=== PATIENT | female | born 1970 | race Caucasian/White ===

== ENCOUNTER 2021-07-08 13:52 | Emergency (ER) | payer SELFPAY ==
[~2021-07-08] VITALS: Ht 157.5 cm; Wt 83.9 kg
== END 2021-07-08 17:43 | disposition home or self-care (01) ==
LOC: ER 13:52
DX: R53.83 Other fatigue (principal); Z88.0 Allergy status to penicillin; Z20.822 Contact with and (suspected) exposure to COVID-19
CPT/HCPCS: 71046; 99284-25

== ENCOUNTER → 2021-08-18 | Outpatient (CLI) | payer SELFPAY ==
[2021-08-18 09:56] LABS: BASOPHILS ABSOLUTE AUTO 0.11 K/mm3 (0.00-0.23); BASOPHILS PERCENT AUTO 1 % (0-2); EOSINOPHILS ABSOLUTE AUTO 0.29 K/mm3 (0.00-0.68); EOSINOPHILS PERCENT AUTO 4 % (0-6); Hematocrit 44.7 % (33.0-51.0); Hemoglobin 14.7 g/dL (11.5-16.0); IMMATURE GRAN ABSOLUTE AUTO 0.04 K/mm3 (0.00-0.10); IMMATURE GRAN PERCENT AUTO 1 % (0-1); LYMPHOCYTES PERCENT AUTO 33 % (21-46); MONOCYTES ABSOLUTE AUTO 0.53 K/mm3 (0.16-1.47); MONOCYTES PERCENT AUTO 7 % (4-13); Mean Corpuscular HGB 28.7 pg (26.0-34.0); Mean Corpuscular HGB Conc 32.9 g/dL (31.5-36.5); Mean Corpuscular Volume 87 fL (80-100); Mean Platelet Volume 9.4 fL (9.1-12.4); NEUTROPHILS ABSOLUTE AUTO 4.48 K/mm3 (1.96-9.15); NEUTROPHILS PERCENT AUTO 55 % (41-73); Platelet Count 225 K/mm3 (150-400); RDW Standard Deviation 48.1 fL (35.1-46.3); Red Blood Cell Count 5.13 M/mm3 (3.80-5.20); White Blood Cell Count 8.15 K/mm3 (4.00-11.30)
== END | disposition home or self-care (01) ==
LOC: LAB SHORT 09:50 → LAB 09:50
PROVIDERS: Physician Assistant
DX: R23.8 Other skin changes (principal)
CPT/HCPCS: 85025; 85379; 85651

== ENCOUNTER 2021-09-21 18:45 | Emergency (ER) | payer SELFPAY ==
[~2021-09-21] VITALS: Ht 157.5 cm; Wt 81.7 kg
== END 2021-09-21 23:17 | disposition home or self-care (01) ==
LOC: ER 18:45
DX: U07.1 COVID-19 (principal); M79.675 Pain in left toe(s); M79.674 Pain in right toe(s); Z88.0 Allergy status to penicillin; F17.200 Nicotine dependence, unspecified, uncomplicated
CPT/HCPCS: 93922; 99283-25

== ENCOUNTER 2023-02-12 19:55 | Emergency (ER) | payer BC ==
[~2023-02-12] VITALS: Ht 157.5 cm; Wt 86.2 kg
[2023-02-12] MEDS ORDERED: CLIN300 PO (23:46)
== END 2023-02-13 00:10 | disposition home or self-care (01) ==
LOC: ER 19:55
DX: K11.20 Sialoadenitis, unspecified (principal); F17.200 Nicotine dependence, unspecified, uncomplicated; Z88.0 Allergy status to penicillin
CPT/HCPCS: A9270; J1885

== ENCOUNTER 2023-11-30 09:02 | Day surgery (SDC) | payer BC ==
[~2023-11-30 09:02] MED LIST: ADALAT CC30 M1 PO; CLIN300 PO; DOCUZEN 8.6-501 EACH PO; ESTROVEN PO; HYDACE25S PR; HYDROCORTISON28.4 G5 TOP; Hair, Skin & N1 EACH PO; Lipitor20 MG PO; OMEP20ER PO
[2023-11-30 11:38] VITALS: BP 158/95
== END 2023-11-30 11:33 | disposition home or self-care (01) ==
LOC: ORSCSDS 09:02
PROVIDERS: Internal Medicine Gastroenterology
PROC: 0DBN8ZX Excision of Sigmoid Colon, Via Natural or Artificial Opening Endoscopic, Diagnostic (ICD-10-PCS; principal; 2023-11-30 10:30)
PROC: 0DBL8ZX Excision of Transverse Colon, Via Natural or Artificial Opening Endoscopic, Diagnostic (ICD-10-PCS; principal; 2023-11-30 10:30)
DX: K62.5 Hemorrhage of anus and rectum (principal); K59.00 Constipation, unspecified; D12.3 Benign neoplasm of transverse colon; K63.5 Polyp of colon; K63.89 Other specified diseases of intestine; K57.30 Diverticulosis of large intestine without perforation or abscess without bleeding; Z80.0 Family history of malignant neoplasm of digestive organs; E78.5 Hyperlipidemia, unspecified; Z83.719 Family history of colon polyps, unspecified; K64.4 Residual hemorrhoidal skin tags; K64.8 Other hemorrhoids; Z79.899 Other long term (current) drug therapy
CPT/HCPCS: 88305; J2704; J7120

== ENCOUNTER 2023-12-28 09:47 | Day surgery (SDC) | payer BC ==
[~2023-12-28] VITALS: Ht 157.5 cm; Wt 87.0 kg
[~2023-12-28 09:47] MED LIST changes: +HYDROCORTISONE-28 GM TOP; +Lactated Ringer's 1,000 ML IV ONE; +propofoL 50 ML IV ONE
[2023-12-28] MEDS ORDERED: ASPI81CH PO (10:30)
[2023-12-28] MEDS ORDERED: CATAPRES-TTS 11 EAC1 TOP (10:30)
[2023-12-28] MEDS ORDERED: Lactated Ringer's 1,000 ML IV ONE (10:38)
[2023-12-28 12:42] VITALS: BP 119/64
== END 2023-12-28 12:46 | disposition home or self-care (01) ==
LOC: ORSCSDS 09:47
PROVIDERS: Internal Medicine Gastroenterology
PROC: 0DB68ZX Excision of Stomach, Via Natural or Artificial Opening Endoscopic, Diagnostic (ICD-10-PCS; principal; 2023-12-28 11:15)
PROC: 0DB58ZX Excision of Esophagus, Via Natural or Artificial Opening Endoscopic, Diagnostic (ICD-10-PCS; principal; 2023-12-28 11:15)
DX: K21.9 Gastro-esophageal reflux disease without esophagitis (principal); K29.50 Unspecified chronic gastritis without bleeding; B96.81 Helicobacter pylori [H. pylori] as the cause of diseases classified elsewhere; D13.0 Benign neoplasm of esophagus; Z80.0 Family history of malignant neoplasm of digestive organs; E78.5 Hyperlipidemia, unspecified; Z79.82 Long term (current) use of aspirin; Z79.899 Other long term (current) drug therapy
CPT/HCPCS: 88305; 88342; J2704; J7120

== ENCOUNTER 2024-01-06 11:07 | Emergency (ER) | payer BC ==
[~2024-01-06] VITALS: Ht 157.5 cm; Wt 86.2 kg
[~2024-01-06 11:07] MED LIST changes: +ASPI81CH PO; +CATAPRES-TTS 11 EAC1 TOP; -Lactated Ringer's 1,000 ML IV ONE; -propofoL 50 ML IV ONE
[2024-01-06 11:27] VITALS: BP 131/78
[2024-01-06] MEDS ORDERED: CLAR500 PO (11:36)
[2024-01-06] MEDS ORDERED: Amoxicillin500 MG PO (11:36)
[2024-01-06] MEDS ORDERED: DiphenhydrAMINE HCl 50 MG Cap PO ONE (12:00)
[2024-01-06] MEDS ORDERED: Famotidine 20 MG Tab PO ONE (12:00)
[2024-01-06] MEDS ORDERED: Triamcinolone Inj Susp 40 MG / ML 1ML Vial IM ONE (12:00)
[2024-01-06] MEDS ORDERED: Tetracycline H500 MG PO (12:43)
[2024-01-06] MEDS ORDERED: Flagyl250 MG PO (12:43)
== END 2024-01-06 12:55 | disposition home or self-care (01) ==
LOC: ER 11:07
DX: T78.40XA Allergy, unspecified, initial encounter (principal); B96.81 Helicobacter pylori [H. pylori] as the cause of diseases classified elsewhere; Z88.0 Allergy status to penicillin; Z79.899 Other long term (current) drug therapy; Z79.82 Long term (current) use of aspirin; F17.200 Nicotine dependence, unspecified, uncomplicated
CPT/HCPCS: 96372; 99283-25; A9270; J3301

== ENCOUNTER → 2024-02-21 | Outpatient (CLI) | payer BC ==
[~2024-02-21] MED LIST changes: +Amoxicillin500 MG PO; +CLAR500 PO; +Flagyl250 MG PO; +Tetracycline H500 MG PO
[2024-02-21 20:00] LABS: BASOPHILS ABSOLUTE AUTO 0.14 K/mm3 (0.00-0.23); BASOPHILS PERCENT AUTO 1 % (0-2); EOSINOPHILS ABSOLUTE AUTO 0.45 K/mm3 (0.00-0.68); EOSINOPHILS PERCENT AUTO 4 % (0-6); Hematocrit 41.5 % (33.0-51.0); Hemoglobin 13.7 g/dL (11.5-16.0); IMMATURE GRAN PERCENT AUTO 1 % (0-1); LYMPHOCYTES ABSOLUTE AUTO 4.22 K/mm3 (0.84-5.20); LYMPHOCYTES PERCENT AUTO 39 % (21-46); MONOCYTES ABSOLUTE AUTO 0.75 K/mm3 (0.16-1.47); MONOCYTES PERCENT AUTO 7 % (4-13); Mean Corpuscular HGB 28.6 pg (26.0-34.0); Mean Corpuscular Volume 87 fL (80-100); Mean Platelet Volume 9.9 fL (9.1-12.4); NEUTROPHILS ABSOLUTE AUTO 5.08 K/mm3 (1.96-9.15); NEUTROPHILS PERCENT AUTO 47 % (41-73); Platelet Count 224 K/mm3 (150-400); RDW Coefficient Variation 15.6 % (11.7-14.2); RDW Standard Deviation 49.7 fL (35.1-46.3); Red Blood Cell Count 4.79 M/mm3 (3.80-5.20); White Blood Cell Count 10.74 K/mm3 (4.00-11.30)
[2024-02-21 21:05] LABS: C-REACTIVE PROTEIN, EXT RANGE <0.290 mg/dL (0.000-0.300)
[2024-02-21 21:07] LABS: Alanine Aminotransfer (ALT/SGP 37 U/L (12-78); Albumin, Blood 3.8 g/dL (3.4-5.0); Albumin/Globulin Ratio 1.1 (0.8-1.8); Alk Phos 113 U/L (50-136); Anion Gap 8 mmol/L (3-11); Aspartate Aminotrans (AST/SGOT 28 U/L (12-37); Bilirubin, Total 0.2 mg/dL (0.1-1.0); Blood Urea Nitrogen 10 mg/dL (8-24); Bun/Creatinine Ratio 10.2 (12.0-20.0); CO2, Blood 25 mmol/L (21-32); Calcium, Blood 9.3 mg/dL (8.5-10.1); Chloride, Blood 111 mmol/L (98-108); Creatinine, Blood 0.98 mg/dL (0.40-1.00); Globulin, Blood 3.5 g/dL (2.2-4.0); Glomerular Filtration Rate 69 (60-); Glucose, Blood 95 mg/dL (70-99); Potassium, Blood 4.3 mmol/L (3.5-5.5); Sodium, Blood 140 mmol/L (136-145); Total Protein, Blood 7.3 g/dL (6.4-8.2)
== END ==
LOC: LAB 19:11 → LAB SHORT 19:11
PROVIDERS: Hospitalist
DX: I77.6 Arteritis, unspecified (principal)
CPT/HCPCS: 80053; 85025; 85651; 86140